=== PATIENT | female | born 1965 | race Caucasian/White ===

== ENCOUNTER 2022-08-08 15:43 | Observation (INO) | payer OTHER ==
[2022-08-08] MEDS ORDERED: ASPIRIN 81 MG CHEWABLE TABLETS PO ONE (17:39)
[2022-08-08] MEDS ORDERED: morphine CARPU-JECT 2 MG/1 ML DISP.SYRIN IVPUSH ONE (17:39)
[2022-08-08] MEDS ORDERED: ASPIRIN 81 MG CHEWABLE TABLETS ONE (17:52)
[2022-08-08 18:14] LABS: BASO % 0.3 % (0-2.0); EOS % 0.1 % (0-4.5); HEMATOCRIT 36.1 % (32.4-45.2); HEMOGLOBIN 12.2 GM/dL (10.7-15.3); LYMPH % 14.4 % (8-40); MCH 28.3 pg (25.7-33.7); MCHC 33.7 g/dl (32.0-36.0); MEAN PLT VOLUME 9.1 fl (7.5-11.1); MONO % 9.4 % (3.8-10.2); NEUT % 75.8 % (42.8-82.8); PLATELET COUNT 311 10^3/uL (134-434); RBC 4.29 M/mm3 (3.60-5.2); RDW 13.4 % (11.6-15.6); WHITE BLOOD COUNT 11.6 K/mm3 (4.0-10.0)
[2022-08-08 18:20] LABS: INR 1.15 (0.83-1.09); PROTHROMBIN TIME (PATIENT) 13.3 SEC (9.7-13.0)
[2022-08-08 18:23] LABS: ACTIVATED PTT 28.8 SECONDS (25.2-36.5)
[2022-08-08 18:31] LABS: ALBUMIN 3.8 g/dl (3.4-5.0); BLOOD UREA NITROGEN 11.5 mg/dL (7-18); CALCIUM 9.2 mg/dL (8.5-10.1)
[2022-08-08 18:34] LABS: CREATININE 0.7 mg/dL (0.55-1.3)
[2022-08-08 18:35] LABS: TOT PROT 7.8 g/dl (6.4-8.2)
[2022-08-08 18:37] LABS: BILIRUBIN,TOTAL 1.4 mg/dL (0.2-1)
[2022-08-08] MEDS ORDERED: AZITHROMYCIN IVPB 500 MG in DEXTROSE 5%-WATER - 250 ML IVPB ONE (21:59)
[2022-08-08] MEDS ORDERED: CEFTRIAXONE 1,000 MG in DEXTROSE 5%-WATER - 50 ML IVPB ONE (21:59)
[2022-08-08] MEDS ORDERED: CEFTRIAXONE 1 GM/50 ML BAG ONE (22:17)
[2022-08-08] MEDS ORDERED: AZITHROMYCIN IVPB 500 MG/250 ML BAG IVPB ONE (22:21)
[2022-08-08] MEDS ORDERED: DOCUSATE SODIUM 100 MG CAPSULE (FP) PO PRN (22:52)
[2022-08-09 00:07] LABS: MAGNESIUM 1.9 mg/dL (1.8-2.4)
[2022-08-09 00:11] LABS: PHOSPHOROUS 3.2 mg/dL (2.5-4.9)
[2022-08-09 02:55] VITALS: BMI 33.5
[2022-08-09] MEDS ORDERED: KETOROLAC TROMETHAMINE 15 MG/ML VIAL IVPUSH PRN (05:04)
[2022-08-09] MEDS ORDERED: PANTOPRAZOLE 40 MG TABLET PO ONE (05:11)
[2022-08-09] MEDS ORDERED: HEPARIN NA (PORCINE) 5,000 UNITS/ML 1ML VIAL SQ SCH (06:00)
[2022-08-09 07:29] LABS: BASO % 0.3 % (0-2.0); HEMATOCRIT 32.7 % (32.4-45.2); HEMOGLOBIN 11.6 GM/dL (10.7-15.3); LYMPH % 17.2 % (8-40); MCH 29.9 pg (25.7-33.7); MCHC 35.5 g/dl (32.0-36.0); MEAN CELL VOLUME 84.1 fl (80-96); MEAN PLT VOLUME 8.2 fl (7.5-11.1); NEUT % 72.5 % (42.8-82.8); PLATELET COUNT 277 10^3/uL (134-434); RBC 3.88 M/mm3 (3.60-5.2); RDW 13.3 % (11.6-15.6); WHITE BLOOD COUNT 9.8 K/mm3 (4.0-10.0)
[2022-08-09 07:53] LABS: BLOOD UREA NITROGEN 9.2 mg/dL (7-18)
[2022-08-09 07:57] LABS: CREATININE 0.6 mg/dL (0.55-1.3)
[2022-08-09] MEDS ORDERED: VALSARTAN 80 MG TABLET PO SCH (10:00)
[2022-08-09] MEDS ORDERED: ENOXAPARIN NA (PORCINE) 40 MG/0.4 ML DISP.SYRIN SQ SCH (10:00)
[2022-08-09 10:54] VITALS: RESP 20
[2022-08-09 10:58] LABS: ERYTHROCYTE SEDIMENTATION RATE 85 mm/hr (0-30)
[2022-08-09] MEDS ORDERED: AZITHROMYCIN IVPB 500 MG/250 ML BAG IVPB ONE (13:12)
[2022-08-09] MEDS ORDERED: CEFTRIAXONE 1 GM in DEXTROSE 5%-WATER - 50 ML IVPB ONE (13:13)
[2022-08-09 14:55] VITALS: BP 115/68; PULSE 104; TEMP 99.2
[2022-08-09] MEDS ORDERED: ACETAMINOPHEN 325 MG TABLET (FP) PO PRN (23:00)
[2022-08-10] MEDS ORDERED: ENOXAPARIN NA (PORCINE) 40 MG/0.4 ML DISP.SYRIN SQ SCH (10:00)
== END 2022-08-09 15:53 | disposition home or self-care (01) ==
LOC: JER 15:43 → JERBED 22:49 → J4W 08-09 02:24
PROVIDERS: ADMIT Internal Medicine; ATTEND Internal Medicine
PROC: 3E03329 Introduction of Other Anti-infective into Peripheral Vein, Percutaneous Approach (ICD-10-PCS; principal; 2022-08-08)
PROC: 3E033NZ Introduction of Analgesics, Hypnotics, Sedatives into Peripheral Vein, Percutaneous Approach (ICD-10-PCS; 2022-08-08)
DX: R07.9 Chest pain, unspecified (principal); I10 Essential (primary) hypertension; E66.01 Morbid (severe) obesity due to excess calories; Z68.33 Body mass index [BMI] 33.0-33.9, adult; I83.90 Asymptomatic varicose veins of unspecified lower extremity
CPT/HCPCS: 0241U-QW; 36415; 71045-TC-FY; 71275-TC; 80048; 80053; 83735; 84100; 84439; 84443; 84484; 85025; 85610; 85651; 85730; 86140; 93005; 93010; 99285-25; G0378; Q9967